=== PATIENT | female | born 2000 | race Caucasian/White ===

== ENCOUNTER 2021-08-27 08:30 | Outpatient (RCR) | payer OTHER, MEDICAID, SELFPAY ==
--- NOTE | 2021-08-27 09:40 | BH.NA ---
Physical Data - Vital Signs Pulse Rate: 79 Blood Pressure: 147/93 - Height/Weight Height: 1.7 m Weight:: 89.358 kg Weight in Pounds: 197.0 lbs Current Medication Compliance - Medication Compliance Do you take your medication as prescribed?: Yes Nutritional History - Appetite Nutritional Instructions:: If client shows signs of a swallowing problem, weight change of 10 pounds or more in the last month, or is on a diabetic diet, the physician will review and request a dietitian consult, as appropriate. All unintentional weight loss will be referred to the physician for decision on need for dietitian consult. Describe your appetite:: Good Functional Assessment - Sleep Pattern Describe any problems with sleeping: Client states she sleeps about 7-8 hours per night, but does state she has been talking with her outpatient psychiatrist about having frequent nightmares. - Activities Motor Activity:: Functional Sensory/Communication Assess - Communication Problems Do you have difficulty understanding what people are saying?: No Medical Problems/History - Pain Assessment Do you have acute or chronic pain?: No - Additional History Additional comments:: bipolar, ADHD, possible borderline personality disorder, depression, anxiety Surgical History - Surgical History Have you had any surgeries? If so, list type and date:: No Substance Abuse - Substance Abuse Please describe substance abuse in the last 30 days:: Client denies alcohol, tobacco or substance use. Client states she drinks about 5-6 pops with caffeine per day. Mental Status Summary - Mental Status Significant Findings/Observations on Appearance and Mood:: Client is alert and oriented x 4. Client is wearing a mask due to the pandemic. Client makes good eye contact. Client's voice has normal rate and volume. Client has appropriate affect and makes logical associations. Client has normal processing. Client denies delusions/hallucinations. Client states she does have some fleeting SI with no plan/intent. Suicide Assessment - Suicidal Ideation Are you currently or have you been suicidal in the past?: Yes - fleeting SI at times, no plan/intent Suicidal Intentional Rating Scale (SIRS): Suicidal thoughts (past) Physician Notification: If Active suicidal thoughts/Will not contract for safety is checked, contact physician and document in the Physician Notification section below. Assault History/Potential Past Psychiatric History - MH Treatment Hx Past Psychiatric Medications:: Prozac, Zoloft, Vraylar Age of first mental health symptoms: Client states she has had symptoms of anxiety and depression since about age 12. Client states she was diagnosed with ADHD as a child. Client states she was diagnosed as bipolar 4-5 years ago and her outpatient psychiatrist and her are talking about the possibility of her having borderline personality disorder. Describe (age, circumstance, etc) any past hospitalizations: Client states she thinks she has been hospitalized 3 times total, one in 2015 for SA by overdose and one in 2020 but she does not remember exactly when third was. Current providers for mental health treatment (counselor, psychiatrist, insurance case manager, etc.): [facility] [id number] for psychiatry and therapy Fall Risk Assessment - Age Age: Less than 60 - Mental Status Mental Status: Willing & able to ask for assistance when needed - Physical Status Physical Status: No problems - Impairments Impairments: None - Elimination Elimination: Continent AND independent - Gait or Balance Gait or Balance: Walks independently - Hx of Falls History of falls in the past 6 months: No known history - Medications/Substances Psychotropics:: Antidepressants, Stimulants Medications/substances used within the past 24 hours or ordered to administer: 1-2 of the medications/substances listed above - Total Score Total Points:: 1 RN Summary of Impressions - Impressions Recommendations: Include psychiatric and medical issues, treatment planning recommendations, and discharge planning needs. Impressions: Psychiatric Issues: 1. Bipolar 1 disorder, most recent episode depression, severe, without psychosis. 2. Generalized anxiety disorder. 3. Cluster B traits, rule out borderline personality disorder. 4. ADHD - Level of Care How do the client's current symptoms and functional deficits support need for this level of care?: Client was referred to IOP by outpatient therapist and psychiatry. Client states she has been having panic attacks frequently and also feels very stressed about work (afraid of doing something wrong). Client states she has 3-4 panic attacks a week and states screaming and self-injury usually follow. Client states she has a long history of self-injury by hitting herself in the head, but states she recently has started to hit herself in the stomach as well. Client states she does have some fleeting SI at times with no plan or intent. Client also endorses anhedonia, isolation and ruminations. IOP will promote gains and prevent further decompensation while providing social support and skills training.
[2021-08-27 10:55] VITALS: BP 147/93; PULSE 79
--- NOTE | 2021-08-27 11:10 | BH.SGPN.GN ---
Behaviors/Verbalizations/Mental Status: []Client alert and oriented, casually dressed and groomed. Eye contact good. Motor activity appropriate. Speech within normal limits. Affect constricted, mood depressed. Thoughts linear, logical, no signs of hallucinations or delusions. Client Response/Progress/Benefit: []Client was an active participant throughout AEB contributing to discussion, providing personal examples, and taking notes. Client did well to relate group topic and activity back to own experiences. Client provided input during discussion on the types of support our supports can provide. Client reports wanting to work on increasing social supports, noting this will help improve trust and help client communicate better. Client plans to improve this support area by talking to her healthy family members, talking with her boyfriend, and signing up for an exercise class. Client seemed to benefit from identifying the type of support and how this support will aid in promoting overall mental wellness. First day of IOP tx. Will continue IOP tx to prevent decompensation, gain healthy coping skills, and improve functioning. Narrative Note: []
--- NOTE | 2021-08-27 12:20 | PCM.BH.PSYEV ---
Psychiatric Evaluation Initial Evaluation Initial Evaluation: History of Present Illness: [] The patient is a 21-year-old single female with a history of bipolar disorder, ADHD and borderline personality disorder who was referred to the [facility] behavioral health IOP program by her psych nurse practitioner for worsening symptoms of depression and anxiety and decreased ability to function. Patient currently lives with her boyfriend in an apartment and they have been together for 6 months. Patient recently had a psychiatric admission at [facility] sometime in the 2020 but she does not remember the month or date. At that time for the of the admission she had depression and suicidal ideation. The patient has what she calls self-harm outburst where she screams and punches her self about 3 times a week. She says sometimes these episodes occur during panic attacks. She feels that the trigger for her worsening symptoms is that she gave her daughter up for adoption around the time of her psychiatric admissions and her daughter is 4 years old. Her daughter was adopted by her half-sister and the patient has not seen her daughter for the last 3 to 4 months. She is uncertain of the rules of visitation for this adoption. Her history of self-harm involves hitting her self but she says it does not need to leave bruises. She has never cut or burned herself. She has decreased her work schedule to part-time in the last 4 weeks due to her mental health issues. 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 She likes her job. For primary support she has her boyfriend. She admits to being somewhat irritable and sad and having crying episodes. She admits to feeling worthlessness but denies hopelessness and denies guilt. She has low motivation and has been isolating. She endorses anhedonia, increased appetite and increased desire to sleep. She is sleeping about 8 hours a night. Her energy level is low but her concentration is okay. She is a worrier by nature and has been ruminating negatively a lot also. She is having panic attacks about once every other day lately. She is obsessed with cleanliness in order but does not meet criteria for OCD. She denies eating disorder, trauma or PTSD. She has no access to guns. She admits to passive fleeting suicidal ideation about 1 week ago but that has resolved. She admits to passive thoughts that she would not care if she but this has not happened since 2 weeks ago. She denies any plan for suicide. She also denies homicidal ideation, hallucinations, delusions or symptoms of adelso. She is not sure when she has been manic she feels that she is mostly depressed and occasionally has episodes where some symptoms of adelso or mixed with depression. Current Psychiatric Medications: [] Latuda 60 mg at dinner with food (x1 month); Lamictal 150 mg p.o. nightly; Focalin 10 mg p.o. twice daily (x3 months); BuSpar 5 mg twice a day (decreased due to side effects recently); hydroxyzine as needed which she is not taking. Past Psychiatric History: [] She has a history of 2 psychiatric admissions in the past. The first was in [address] [facility] in [place]. The second was in the fall 2020 at [facility]. She has a history of 1 suicide attempt in 2014 by overdose. The patient feels there may have been a third psychiatric admission but she says she is not sure. She has a nurse practitioner for psych at [facility] for 08 03 and a counselor there also. She was first depressed at age 12. She first took psychiatric medications very young but is not sure what for. She was diagnosed with ADHD and bipolar disorder at age 20. She first hit her self at age 16. She has been on other meds but does not recall them. Substance Use History: [] Non-smoker. No vaping. No alcohol use. No marijuana use. No other drug use ever. No rehab ever. Allergies: [] No known allergies Medications: [] Psych meds as dictated above plus Depo-Provera IM shot for the past 4 years for control. Past Medical History: [] 1 para 1 Ab0 with a 4-year-old daughter by vaginal delivery and no complications. No surgeries ever. No other medical illnesses. Family Psychiatric History: [] Mother is 50 years old and father is 55 years old. She denies any other mental health history in the fact in the family. No substance use issues in the family. Personal/Social History: [] The patient was born and raised in [facility] and describes her childhood as confusing. Her parents when the patient was less than 1-year-old and the patient lived with her mother and saw her father every other weekend. From age [age] she then lived with her father for 2 years and saw her mother regularly. She was raised with 3/2 siblings. One is 4 years older than her and the others are over 10 years older than her. She is close to one of her half sisters and this is the sister that is adopting her daughter but they are no longer close now. She denies any verbal, physical or sexual abuse. School was good for her and she did okay. She graduated high school and did 2 years of college. She worked very physical jobs since graduating high school but that she changes jobs a lot and is not sure why. The longest job she has ever held has been for 7 months. She identifies as heterosexual and her fear for serious boyfriend is her current one who she has been with for 6 months. No abuse in her relationships. Legal History: [] No arrests. No DUIs. Has fast food delivery driver's license. Review of Systems: [] Negative except as noted in present illness. Vital Signs: [] Reviewed in nurses notes. Mental Status Examination: [] Patient is a 21-year-old female who is seen wearing a mask in a headband. She is normal for stated age and is casually dressed and groomed with good hygiene. She has no psychomotor agitation or retardation. She is cooperative during the interview. Eye contact is good and speech is normal rate and rhythm and fluent with no pressure. Mood is depressed. Affect is constricted. Thought process is goal-directed and organized. Thought content: There is evidence of recent passive suicidal ideation 1 week ago but no current suicidal ideation or thoughts of or plan for suicide. There is no evidence of homicidal ideation, hallucinations, delusions or symptoms of adelso. Reality testing is intact. Intelligence is above average. Judgment is limited. Insight is limited. Impulsivity is high. Diagnoses: [] 1. Bipolar 1 disorder, most recent episode depression, severe, without psychosis 2. Generalized anxiety disorder 3. Cluster B traits, rule out borderline personality disorder 4. ADHD 5. Work and primary support issues Plan: [] The patient will start the IOP program at [facility] as the structure, support, education and group therapy will hopefully prevent worsening of the patient's symptoms which might require hospitalization. She felt safe during the interview and if it anytime she does not feel safe she will let us know or go to the emergency room. The risks, options, possible complications and side effects of the medications were discussed with the patient and she understands and accepts these. No medication changes were made today as the medications were changed by her psychiatric nurse practitioner 2 days ago when she had an appointment with her. The patient states she feels this medication regimen is improving her symptoms and she refuses medication changes now. She will continue to follow-up with her outpatient psychiatric and medical providers and I will see the patient in follow-up as needed and in 2 weeks.
--- NOTE | 2021-08-27 12:32 | BH.DR.ITP ---
Initial Treatment Plan Patient Information Visit Information: ADMISSION DATE: EXPECTED LOS: 4-6 weeks Problems/Symptoms Problem #1:: Depression Symptom:: Sadness, crying, worthlessness, low motivation, isolation, anhedonia, low energy, recent passive, fleeting suicidal ideation, recent passive thoughts of . Problem #2:: Anxiety Symptom:: Worry, rumination, panic attacks
--- NOTE | 2021-08-27 15:09 | BH.COMM_ITS ---
Communication Note - Communication with Client Communication Note: Met with patient to complete initial paperwork for IOP. No significant changes since pre-admission screening. Completed [facility] Scre[facility]. Reports having fleeting passive suicidal ideations within the past month, but denies any intent or plan within the past month. Reports a week ago she had fleeting suicidal ideations and impulsively was going to cut herself, but reports her boyfriend stopped her. History of one previous suicide attempt when pt was a freshman in high school. Pt overdosed on Prozac and spent time in the ICU. Future oriented. Protective factors are her boyfriend, family, and arianne. Reports there is a gun at home, but it is locked up and pt has no access to it. Reports ability to maintain safety. Case discussed with Dr. Cedillo with plan to admit to IOP with dx of bipolar I disorder, most recent episode depression, severe, without psychosis F 31.4
--- NOTE | 2021-08-27 15:09 | BH.MTP ---
Master Treatment Plan - Patient Information Program Physician:: Dr. Terri March Primary Therapist:: Mylene HANSON - Psychiatric Diagnoses Psychiatric Diagnoses:: Bipolar 1 disorder, most recent episode depression, severe, without psychosis; Generalized anxiety disorder; Cluster B traits, rule out borderline personality disorder; ADHD Diagnosis Code(s):: F 31.4 - Estimated LOS Estimated LOS (in weeks):: 6 Problem/Goal #1 - Problem/Goal #1 Stated Goal:: Client will reduce depressive symptoms, anhedonia, and distorted thinking patterns due bipolar disorder, most recent episode depressed. Description of Barriers: Client experiencing significant stressor of giving her daughter up for adoption a year ago. Client reports history of negative thinking patterns and insecurities that impact her relationships and client wants to change these. Client has a history of self-injurious behaviors and a suicide attempt via overdose. Client drives from [place] which could be a barrier in the winter due to weather. Functional Impact: Client is a 22-year-old female with a history of bipolar disorder, ADHD, anxiety, and cluster B traits. Client has a history of two previous psychiatric admissions with the most recent being in 2020 at [facility]. Client was referred to [facility] tx by her outpatient mental health providers due to worsening symptoms which were impacting functioning. Client has been working part-time due to mental health symptoms with limited benefit from traditional outpatient counseling. Client reports outbursts which involve self-injurious behaviors and screaming that occur multiple times a week. Currently endorses increased sleep, increased appetite, low energy, low motivation, anhedonia, isolative behaviors, and worthlessness. Additionally, client reports frequent panic attacks, ruminations, and distorted thoughts that impact her relationships. Client's primary trigger is giving her daughter up for adoption to her sister last year. Client has been experiencing passive thoughts of which occur frequently, but she denies any active suicidal ideations, plan, or intent currently. Client's symptoms are impacting her occupational, social, and home functioning. Goal Relevant Strengths/Supports: Client has an outpatient psychiatric aide and therapist through [facility]. Client reports her boyfriend is supportive and her employer is supportive as well. - Objectives Objective #1 Stated Objective: Client will learn and utilize 2-3 healthy coping strategies to better manage depressive symptoms as shown by reduced DSM-5 scores. Interventions: Through group and individual sessions, therapist will help client identify triggers and warning signs of depression. Therapist will teach client various coping skills to manage her symptoms and give client tangible resources to use to regulate emotions. Therapist will use cognitive restructuring techniques and help client gain awareness of negative thoughts that reinforce depressive cycles and help client reframe these thoughts. Discharge Criteria: Client will have met this goal when she can report learning and using at least 2 coping skills to manage depressive symptoms and show a reduction in DSM-5 symptoms. Target Date: 10/08/21 Review Date: 09/24/21 Status: open Objective #2 Stated Objective: Client will identify at least 2-3 negative self-talk messages used to reinforce guilt, worthlessness, and negative view of self and replace thoughts with balanced, realistic messages. Interventions: Therapist will help client identify distorted, negative beliefs about self and replace with more realistic, affirmative messages. Therapist will use CBT and DBT to help client increase insight to the connection between thoughts, emotions, and behaviors. Therapist will encourage client to practice thought challenging. Discharge Criteria: Client will have achieved this goal when can verbalize at least 2 negative self-talk messages and effectively replace those thoughts with affirmative messages. Target Date: 10/08/21 Review Date: 09/24/21 Status: open Problem/Goal #2 - Problem/Goal #2 Stated Goal:: Client will reduce anxiety symptoms while increasing ability to function on daily basis. Description of Barriers: Client experiencing significant stressor of giving her daughter up for adoption a year ago. Client reports history of negative thinking patterns and insecurities that impact her relationships and client wants to change these. Client has a history of self-injurious behaviors and a suicide attempt via overdose. Client drives from [place] which could be a barrier in the winter due to weather. Functional Impact: Client is a 22-year-old female with a history of bipolar disorder, ADHD, anxiety, and cluster B traits. Client has a history of two previous psychiatric admissions with the most recent being in 2020 at [facility]. Client was referred to [facility] tx by her outpatient mental health providers due to worsening symptoms which were impacting functioning. Client has been working part-time due to mental health symptoms with limited benefit from traditional outpatient counseling. Client reports outbursts which involve self-injurious behaviors and screaming that occur multiple times a week. Currently endorses increased sleep, increased appetite, low energy, low motivation, anhedonia, isolative behaviors, and worthlessness. Additionally, client reports frequent panic attacks, ruminations, and distorted thoughts that impact her relationships. Client's primary trigger is giving her daughter up for adoption to her sister last year. Client has been experiencing passive thoughts of which occur frequently, but she denies any active suicidal ideations, plan, or intent currently. Client's symptoms are impacting her occupational, social, and home functioning. Goal Relevant Strengths/Supports: Client has an outpatient psychiatric aide and therapist through [facility]. Client reports her boyfriend is supportive and her employer is supportive as well. - Objectives Objective #1 Stated Objective: Client will identify 2-3 anxiety triggers and 2 coping skills to use when feeling anxious to manage anxiety as shown by decreasing her DSM-5 scores for anxiety. Interventions: Therapist will provide education on anxiety, avoidance behaviors, and maintenance cycles. Therapist will help client explore personal symptoms and warning signs of anxiety. Therapist will teach client coping skills to improve emotional regulation, mindfulness, and distress tolerance to help client cope with anxiety in the moment. Discharge Criteria: Client will have accomplished this goal when she can identify at least 2 triggers and report using 2 coping skills to manage anxiety. Additionally, client will have accomplished this goal when her DSM-5 scores show a reduction for anxiety. Target Date: 10/08/21 Review Date: 09/24/21 Status: open Objective #2 Stated Objective: Client will identify 2-3 cognitive distortions that lead to rumination and relationship anxiety and learn 2-3 ways to manage these thoughts to better manage anxiety Interventions: Therapist will provide education on the most common cognitive distortions and teach client the connection between thoughts, emotions, and feelings. Therapist will assist client in identifying, challenging, and replacing dysfunctional thoughts with positive, more realistic thoughts. Therapist will use CBT and DBT techniques to help client gain awareness of thinking errors and learn how to more effectively handle negative thoughts. Will encourage client to communicate with her supports to help combat distortions within relationships. Discharge Criteria: Client will have accomplished this goal when can identify at least 2 cognitive distortions and at least 2 coping skills to manage negative thoughts. Target Date: 10/08/21 Review Date: 09/24/21 Status: open
--- NOTE | 2021-08-27 15:09 | BH.PSA ---
Source of Information - Presenting Problems/Circumstances Problems, Referral Source, Mental Status, Client: Client is a 22-year-old female with a history of bipolar disorder, ADHD, anxiety, and cluster B traits. Client has a history of two previous psychiatric admissions with the most recent being in 2020 at [facility]. Client was referred to [facility] by her outpatient mental health providers due to worsening symptoms which were impacting functioning. Client has been working part-time due to mental health symptoms with limited benefit from traditional outpatient counseling. Client reports outbursts which involve self-injurious behaviors and screaming that occur multiple times a week. Currently endorses increased sleep, increased appetite, low energy, low motivation, anhedonia, isolative behaviors, and worthlessness. Additionally, client reports frequent panic attacks, ruminations, and distorted thoughts that impact her relationships. Client's primary trigger is giving her daughter up for adoption to her sister last year. Client has been experiencing passive thoughts of which occur frequently, but she denies any active suicidal ideations, plan, or intent currently. Client's symptoms are impacting her occupational, social, and home functioning. Psychiatric Presentation - Psych Issues & Need for Admission Psychiatric Issues:: Bipolar 1 disorder, most recent episode depression, severe, without psychosis; Generalized anxiety disorder; Cluster B traits, rule out borderline personality disorder; ADHD Past Psychiatric History - Treatment Hx Treatment History: Client has a history of two psychiatric admissions in the past. The first was in 2014 at [facility]. The second was in the fall 2020 at [facility]. Client has a history of one suicide attempt in 2015 by overdose. Client feels there may have been a third psychiatric admission but she says she is not sure. Client has a psychiatric nurse practitioner at [place] [address] and a therapist there also. Client reports she was first depressed at age 12. She first took psychiatric medications very young maybe 8th grade for anxiety and depression. Client was diagnosed with ADHD and bipolar disorder at age 20. First hospitalization:: 2014 at [facility] Most recent hospitalization:: fall 2020 at [facility]. Medication Trials:: Yes ECT Therapy:: No Age of first mental health symptoms: See treatment history Describe (age, circumstance, etc) any past hospitalizations: see treatment history Current providers for mental health treatment (counselor, psychiatrist, director of casework, etc.): Debbie Nieves (director of psychiatry) and Shelli Mendez (therapist) at [place] [address] Development & Family of Origin - Childhood Significant Childhood Events: Client's parents when client was an . Client describes her relationship with her father as strained. Client reports being bullied in school. - Family Who currently lives in your home?: Client lives with her boyfriend and they rent. Describe family composition:: Client was born and raised in [facility] [place] and describes her childhood as confusing. Her parents when client was less than 1-year-old and client lived with her mother and saw her father every other weekend. From age [age] she then lived with her father for 2 years and saw her mother regularly. Client is close with her mother but client does not have a good relationship with her father. Client stated her grandpa and one of her sibling?s fathers were more of a father figure to client. Client was raised with 3/2 siblings. One is 4 years older than her and the others are over 10 years older than her. She was close to one of her half-sisters and this is the sister that is adopting her daughter but they are no longer close now. Client has a four year old daughter and client is no longer with the father of the her baby. Client is currently in a relationship that client describes as healthy. - Family History Family Hx of Psychiatric or AOD Problems: Denies any family history of AoD or mental health issues. Ethnicity - Culture Do you identify yourself with any particular cultural, ethnic background, or community?: No - Sexuality Sexual Orientation: Heterosexual Mental Status - Memory Recent Memory: Fair Remote Memory: Fair - Concentration Concentration: Good - Eye Contact Eye Contact: Good - Speech Speech: Soft - Thought Process Thought Process: Ruminations Insight: Good Judgment: Fair Behavior: Anxious - Orientation Orientation: Time, Person, Place, Situation - Appearance Appearance: Appropriate - Mood Mood: Anxious, Depressed - Affect Affect: Constricted Suicide Assessment - Suicidal Ideation Have you ever felt like hurting yourself?: Yes Please explain:: History of one previous suicide attempt when pt was a freshman in high school. Pt overdosed on Prozac and spent time in the ICU. Were you using ETOH/drugs at the time?: No Suicidal Intentional Rating Scale (SIRS): Suicidal thoughts (past) - There is evidence of recent passive suicidal ideation 1 week ago but no current suicidal ideation or thoughts of or plan for suicide. Physician Notification: If Active suicidal thoughts/Will not contract for safety is checked, contact physician and document in the Physician Notification section below. Violent Behavior/Abuse History - Homicidal Ideation Do you have any homicidal thoughts? If so, explain:: No Is there a known potential victim? If yes, who:: No - Abuse Have you ever been abused?: No Please explain:: Client denies any outright abuse, but during discussion, client reports that there was some potential emotional neglect and odd behaviors by her father when client stayed with him. Client described these behaviors as her father wanting client to sleep in bed with him, but client reports he never touched client inappropriately. - Life Events Are there any other significant life events?: Hardships, Loss of custody of child(gina) Describe significant life events: Client reports belief that the trigger for her worsening symptoms is that she gave her daughter up for adoption around the time of her psychiatric admission. Client shared her family encouraged client to give her daughter up for adoption due to client's mental health symptoms. Client's daughter is 4 years old. Client's daughter was adopted by her half-sister and the patient has not seen her daughter for the last 3 to 4 months. Client has a lot of regret about this and this has caused a strain in the relationship between client and her sister. - Safety Do you ever feel threatened in your home? If yes, describe:: No Adult Social History - Age 17 to Present Describe your current support system:: Client reports her mother and boyfriend are her primary supports. client also states her current employer has been understanding and supportive of her mental health. Substance Use - Substance Substance Use Type: None - Specific Drugs What specific drugs have you used?: Non-smoker. No vaping. No alcohol use. No marijuana use. No other drug use ever. No rehab ever. Education & Occupational Histo - Education What is your level of education?: Some College - She graduated high school and did 2 years of college Do you have any learning disabilities?: No - Occupation List any current or past employment:: Client currently works at [employer] in [place] and likes her job. She worked very physical jobs since graduating high school but that she changes jobs a lot and is not sure why. The longest job she has ever held has been for 7 months. Service - Service Have you ever been in the ?: No Legal History - Records Have you had any past legal charges?: No Do you have any current legal charges?: No Have you ever been incarcerated? If yes, describe:: No - Court Orders Have you had any past court orders for psychiatric treatment?: No Do you have a present court order for psychiatric treatment?: No Problem Checklist - Current Problem Areas Problem List: Nutritional/Eating pattern changes, Depressed mood/sad, Bereavement, Anxiety, Anger/aggression, Inattention, Impulsivity, Mood swings/hyperactivity, Sleep problems, Additional psychosocial stressors Discharge Planning Needs - Anticipated Follow-Up [facility] (Name/Phone Number):: [id number] Private Therapist/Psychiatrist:: Debbie Nieves (director of psychiatry) and Shelli Mendez (therapist) Information Management Specialist's Assessment - Client's Needs What are the client's strengths?: Client has an outpatient director of psychiatry and therapist through [facility]. Client reports her boyfriend is supportive and her employer is supportive as well. Diagnoses - Diagnoses Diagnosis #1:: Bipolar 1 disorder, most recent episode depression, severe, w/o psychosis Diagnosis #2:: Generalized anxiety disorder Diagnosis #3:: Cluster B traits, rule out borderline personality disorder Diagnosis #4:: ADHD Interpretive Summary - Interpretive Summary Interpretive Summary: Client is a 21-year-old single female with a history of bipolar disorder, ADHD and rule out borderline personality disorder who was referred to the [facility] behavioral health IOP program by her psych nurse practitioner for worsening symptoms of depression and anxiety and decreased ability to function. Client currently lives with her boyfriend in an apartment and they have been together for 6 months. Client recently had a psychiatric admission at [facility] sometime in the 2020 but she does not remember the month or date. At that time for the of the admission she had depression and suicidal ideation. Client reports the trigger for her worsening symptoms is that she gave her daughter up for adoption around the time of her psychiatric admission. Client continues to feel grief about this and regret. Client?s daughter is 4 years old. Her daughter was adopted by her half-sister and the client has not seen her daughter for the last 3 to 4 months. She is uncertain of the rules of visitation for this adoption but client plans to talk with her sister about this. Client has history of one other hospitalization and one previous suicide attempt when client was in high school. Client has what she calls self-harm outburst where she screams and punches herself about 3 times a week. She says sometimes these episodes occur during panic attacks. Her history of self-harm involves hitting herself but she says it does not need to leave bruises. Client?s symptoms have been impacting her ability to function at work and client decreased her work schedule to part-time in the last 4 weeks due to her mental health issues. Client works at [employer] in [place] and likes her job. Client reports it has been hard for her to keep jobs in the past. For primary support she has her boyfriend. She admits to being somewhat irritable and sad and having crying episodes. Client reports feeling worthlessness but denies hopelessness and denies guilt. She has low motivation and has been isolating. She endorses anhedonia, increased appetite and increased desire to sleep. She is sleeping about 8 hours a night. Her energy level is low but her concentration is okay. She is a worrier by nature and has been ruminating negatively a lot also. She is having panic attacks about once every other day lately. She is obsessed with cleanliness in order but does not meet criteria for OCD. She denies eating disorder, trauma or PTSD. She has no access to guns. She admits to passive fleeting suicidal ideation about 1 week ago but that has resolved. She admits to passive thoughts that she would not care if she but this has not happened since 2 weeks ago. She denies any plan for suicide. She also denies homicidal ideation, hallucinations, delusions or symptoms of adelso. She is not sure when she has been manic she feels that she is mostly depressed and occasionally has episodes where some symptoms of adelso or mixed with depression. Did not report any family history of bipolar disorder or other mental illness. Denies trauma, but reports her relationship with her father is a contributing factor for her negative thinking and mental health. Denies any substance use. Treatment Plan Recommendations - Recommendations Guidelines: Special needs identified to be included in the development of an individualized treatment plan regarding past psychiatric history and treatment, developmental events, family relationships/events/culture, past and/or current educational, occupational, social, and residential experience, and legal status. Recommendations:: Client will start the IOP program at [facility] as the structure, support, education and group therapy will hopefully prevent worsening of client?s symptoms which might require hospitalization. She felt safe during the interview and if it anytime she does not feel safe she will let us know or go to the emergency room. The risks, options, possible complications and side effects of the medications were discussed between client and IOP psychiatrist and she understands and accepts these. No medication changes were made as client?s outpatient director of psychiatry recently made adjustments. Client will continue seeing her outpatient providers. Client will also continue to be off work while in IOP to give client time to focus on improving symptoms.
--- NOTE | 2021-09-01 09:00 | BH.SGPN.GN ---
Behaviors/Verbalizations/Mental Status: []Eye contact is good. Motor activity is appropriate. Appearance is casual. Speech is appropriate. Mood is euthymic. Affect is congruent. Thoughts are linear and logical. No evidence of psychosis. Reviewed daily symptom tracker sheet with no reports of suicidal ideations, plan, or intent. Client Response/Progress/Benefit: []Client was engaged throughout group session, sharing and listening attentively to others. Client reported her emotion as ?hopeful?. Client stated that she had been stressed about having a conversation with her partner regarding not working while she is in IOP treatment. Stated that the conversation went well, and that she spent time with her partner this weekend. Shared also setting aside time for self care this weekend and did a facemask. Client appeared to benefit from supportive group environment and reflecting on areas of personal progress. Will continue IOP treatment to increase anxiety management skills and increase knowledge and application of varied self care to increase daily functioning. Narrative Note: []
--- NOTE | 2021-09-01 10:00 | BH.SGPN.GN ---
Behaviors/Verbalizations/Mental Status: []Eye contact is fair. Motor activity is appropriate. Appearance is casual and grooming tended to. Speech is Appropriate. Mood is depressed. Affect is constricted. Thoughts are linear and logical. No evidence of psychosis Client Response/Progress/Benefit: []Pt was an engaged participant AEB providing input at times during group discussion and was attentive to others comments. Pt appeared attentive AEB taking notes during psychoeducation about cognitive distortions. Pt benefited from education and increased awareness of cognitive distortions and the role that they play on our behaviors and emotions. Shared with group top three distortions personally uses the most includes: mental filter, jumping to conclusions and labeling. Able to connect impact distortions has on her mental health. Will continue IOP tx to improve emotion regulation, improve daily functioning and prevent decompensation.
--- NOTE | 2021-09-01 11:15 | BH.SGPN.GN ---
Behaviors/Verbalizations/Mental Status: []Client alert and oriented, casually dressed and groomed. Eye contact good. Motor activity appropriate. Speech within normal limits. Affect congruent, mood euthymic. Thoughts linear, logical, no signs of hallucinations or delusions. Client Response/Progress/Benefit: []Pt active throughout session, taking notes and contributing examples. Pt was an actively engaged participant in Cognitive Distortions Jeopardy and utilized notes from psychoeducation on cognitive distortions to assist peers in correctly answering questions. Experiential activity was beneficial as it provided a way for pt to review notes and handouts during psychoeducation to answer questions for the game. Pt reflected on today?s topic and wrote her biggest take away from session was ?knowing not everything is my fault.? Pt was given a thought log to complete for homework. Will continue in IOP tx to prevent decompensation, gain healthy coping skills to help pt return to work, and reduce negative thinking. Narrative Note: []
--- NOTE | 2021-09-01 15:03 | BH.MDN_ITS ---
Multi-Disciplinary Note - Note 30-min Individual Time Started:: 12:05 Date: 09/01/21 Purpose of session/treatment goals addressed:: To gather information on client's current stressors, symptoms, triggers, and tx goals. Another goal was to build rapport and provide emotional support. Eye Contact:: Good Motor Activity:: Appropriate Appearance:: Casual Speech:: Appropriate Mood:: Euthymic Affect:: Congruent Thoughts:: Linear, Logical, No evidence of hallucinations/delusions noted Staff Interventions:: psychoeducation on: - cbt, rapport building, strengths perspective, treatment planning, goal setting Client Response:: Client responded well to session, open to meeting with therapist. Client shared she has been enjoying IOP and hopes the program will help client return to normal functioning. Client discussed the stressors that contributed to her worsening mental health which included giving up her daughter for adoption within the past year. Client stated she wants to work on coping with the emotions surrounding this and to learn how to challenge distortions. Client would also like to improve her emotional regulation skills and communication skills as client reports she either lashes out or shuts down. Client stated she often does this to her boyfriend and wants to learn how to open up more. Client reported it has always been hard for her to talk about her emotions and this was a learned behavior from her family. Client has an outpatient counselor and psychiatry physician. Client reported she has learned coping skills such as PMR and cold therapy but she has not tried these skills yet. Client willing to try these skills for homework and to work on the homework from cognitive distortion group today. Risks/Concerns:: Client denies any suicidal ideations, plan, or intent as of 09/01/21. Future oriented. Denies any HI. Progress Toward Goals/Plan:: Client started IOP tx last week and she reports I really like the program. Client shared she is hoping to take time off of work to focus on her mental health. Client reports her symptoms have been impacting her relationships and ability to function. Endorses a depressed mood, isolative behaviors, increased irritability, and anxiety. Client identified her treatment goals and would like to do a family session with her boyfriend in the future. Will continue IOP tx to prevent decompensation, improve daily functioning, and increase ability to cope with stressors. Time Stopped:: 12:25
--- NOTE | 2021-09-03 09:02 | BH.SGPN.GN ---
Behaviors/Verbalizations/Mental Status: []Client alert and oriented, casually dressed and groomed. Eye contact good. Motor activity appropriate. Speech within normal limits. Affect congruent to topic being discussed, mood dysthymic. Thoughts linear, logical, no signs of hallucinations or delusions. Reviewed client?s symptom tracker, no risk for suicidal ideation, plan, or intent as of 09/03/21 client Response/Progress/Benefit: C[]Client responded well to session, attentive and receptive to feedback. Client reports feeling hopeful this morning. Client shared she and her boyfriend have been going through some rough times and client is hoping that being in IOP tx will help with this. Client received support and advice from peers which client reported was helpful. Client's mental health win today was that she had a talk with her sister about the adoption of client's daughter. Client's sister adopted client's 4-year-old and client stated the conversation helped client understand rights. Client reflected on the courage it took to have this conversation. Appeared to benefit from group support. Will continue IOP tx to prevent decompensation, increase healthy emotional regulation skills, and combat distorted thought patterns. Narrative Note: []
--- NOTE | 2021-09-03 10:10 | BH.SGPN.GN ---
Behaviors/Verbalizations/Mental Status: [] Eye contact is good. Motor activity is appropriate. Appearance is casual. Speech is Appropriate. Mood is depressed. Affect is flat. Thoughts are linear and logical. No evidence of psychosis Client Response/Progress/Benefit: [] Pt did not participate in group discussion. Was not engaged nor did she provide input on topics however did appear attentive AEB by note taking. Attentive during psychoeducation on types of boundaries (physical, emotional, sexual, material, and time), benefits to setting bounsaries, and obstacles to setting healthy boundaries. Benefited from increased awareness of the role of boundaries in mental health. Will continue in IOP to prevent decompensation, increase healthy coping skills, and improve functioning to return to work. Narrative Note: []
--- NOTE | 2021-09-03 11:10 | BH.SGPN.GN ---
Behaviors/Verbalizations/Mental Status: [] Client alert and oriented, casually dressed and appropriately groomed. Eye contact fair. Motor activity WNL. Speech within normal limits. Affect flat, mood anxious and depressed. Thoughts linear and intact. no signs of delusions or hallucinations. Client Response/Progress/Benefit: [] Client mostly passive participant AEB client providing limited contributions, however did appear to listen attentively to others. Client attentive during psychoeducation on the different boundary styles. Client identified she is rigid with boundaries in some areas of her life and porous in other areas of her life. Participated in group discussion brainstorming various strategies for improving healthy personal boundaries. Client identified wanting to work on pausing, taking a breath and don't respond before she has her thoughts formulated. Client recognizes managing emotions in the moment will help improve ability to set healthy boundaries. Will continue IOP tx to increase emotion regulation, challenge distorted thought patterns and prevent decompensation.
--- NOTE | 2021-09-08 09:00 | BH.SGPN.GN ---
Behaviors/Verbalizations/Mental Status: []Client alert and oriented, casually dressed and groomed. Eye contact good. Motor activity appropriate. Speech within normal limits. Affect constricted, mood dysthymic. Thoughts linear, logical, no signs of hallucinations or delusions. Reviewed client?s symptom tracker, no risk for suicidal ideation, plan, or intent as of 09/08/21 Client Response/Progress/Benefit: []Client responded well to session, attentive and receptive to feedback. Client reports feeling tired and sad this morning. Client shared she did not sleep well yesterday and Rao's Day is a trigger because client is used to spending the day with her daughter. Client gave her daughter up for adoption to her sister last year. Client stated she had low motivation today and did not want to come, but she used opposite action. Client received encouragement from peers and shared I know being here makes me feel better. Client also talked through a conflict with her boyfriend which she identified as a win. Appeared to benefit from peer support. Progress noted in use of opposite action today. Will continue IOP tx to prevent decompensation, improve daily functioning, and reduce distorted thought patterns. Narrative Note: []
--- NOTE | 2021-09-08 11:07 | BH.SGPN.GN ---
Behaviors/Verbalizations/Mental Status: []Client alert and oriented, casually dressed and groomed. Eye contact fair to good. Motor activity appropriate. Speech within normal limits, quiet. Affect constricted, mood anxious and depressed. Thoughts linear, logical, no signs of hallucinations or delusions Client Response/Progress/Benefit: []Client responded well to session AEB listening to group discussion and completing the resilience worksheet provided. Client participated in the discussion of how each resiliency component can help increase personal resiliency. Worked cooperatively with group to identify strategies to enhance each of the components discussed. Client identifying doing well with the resilience components of: self-awareness and taking care of yourself. Went on to reflect wanting to improve in the personal resilience component of ?move towards your goals?. Client stated she wants to work on this by breaking tasks and goals into smaller steps. Client seemed to benefit from discussing strategies for improving personal resilience. Will continue IOP tx to prevent decompensation, continue to promote application of healthy coping skills, and further improve mood stability. Narrative Note: []
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
--- NOTE | 2021-09-10 09:00 | BH.SGPN.GN ---
Behaviors/Verbalizations/Mental Status: []Client alert and oriented, casually dressed and groomed. Eye contact fair to good. Motor activity appropriate. Speech within normal limits. Affect congruent, mood depressed. Thoughts linear, logical, no signs of hallucinations or delusions. Reviewed client?s symptom tracker, no risk for suicidal ideation, plan, or intent as of 09/10/21 Client Response/Progress/Benefit: []Client responded well to session, willing to share and receptive of support from peers. Client reports feeling unhappy this morning and attributes this to having several arguments with her boyfriend the past several days. Shared this has impacted her overall mood and desire to do things as well. Shared not wanting to get out of the house which has created additional conflict. Client receptive of supportive feedback and shared finding the group setting to be helpful in allowing her to feel less alone. Client identified that despite this stressor, she is still making plans for self-care this week and is scheduled to get her hair done. Additionally, shared reaching out to supports, doing puzzles, and watching movies has aided in improving her mood at times throughout the week as well. Client progress limited as she continues to struggle with significant depressive symptoms and negative thinking patterns. Will continue IOP tx to prevent decompensation, continue to improve depression management skills, and further encourage regular self-care . Narrative Note: []
--- NOTE | 2021-09-10 10:10 | BH.SGPN.GN ---
Behaviors/Verbalizations/Mental Status: []Client alert and oriented, casually dressed and groomed. Eye contact good. Motor activity appropriate. Speech within normal limits. Affect constricted, mood anxious. Thoughts linear, logical, no signs of hallucinations or delusions. Client Response/Progress/Benefit: []Client responded well to session AEB sharing and listening attentively to others. Client listened attentively and took notes throughout group discussion defining and identifying barriers to taking action. Clinician discussed how certain emotional states can color our perspective, describing it as ?what is driving your bus?. Client provided shyness, lack of communication, and anger as driving her ?bus? most often. Appeared to benefit from increased self-awareness and knowledge regarding examples and barriers to taking action. Will continue IOP treatment to continue increasing client?s self-esteem and decrease negative self-talk to increase overall functioning. Narrative Note: []
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
--- NOTE | 2021-09-15 09:00 | BH.SGPN.GN ---
Behaviors/Verbalizations/Mental Status: [] Eye contact is good. Motor activity is appropriate. Appearance is disheveled. Speech is Appropriate. Mood is depressed. Affect is flat. Thoughts are linear and logical. No evidence of psychosis. Reviewed daily check in sheet and no reports of suicidal ideations or intent. Client Response/Progress/Benefit: [] Pt participated at times during the group discussion. Attentive. Emotion for today is hopeful. Daily symptom tracker notes 5 for depression and 5 for anxiety. Pt shared with the group that she was struggling with depression last week and into the weekend. Her mental health win was that she was able to identify some coping skills that were effective for her depression and outbursts. Insight also that poor communication and bottling up emotions/thoughts led to conflict with BF. Was able to be vulnerable and communicate honestly with support and has noticed significant improvement. Open up to group that negative thoughts about giving up her daughter to adoption is often the trigger to decompensation and outbursts. States today that she woke up happy. In good spirits today. Progress noted per pt report. Benefited from group support, encouragement, and feedback. Will continue with IOP to prevent decompensation, stabilize mood, improve functioning to return to work. Narrative Note: []
--- NOTE | 2021-09-15 10:05 | BH.SGPN.GN ---
Behaviors/Verbalizations/Mental Status: []Client alert and oriented, casually dressed and groomed. Eye contact good. Motor activity appropriate. Speech within normal limits. Affect constricted, mood anxious. Thoughts linear, logical, no signs of hallucinations or delusions. Client Response/Progress/Benefit: []Client responded well to session AEB listening attentively to others. Client was attentive and engaged throughout group discussion regarding the definition and impacts of anxiety, its benefits, and when it becomes abnormal. Clinician provided psychoeducation on anxiety diagnoses and the anxiety triangle of physical symptoms, safety behaviors, and common anxious thoughts. Client identified physical symptoms of anxiety as including headaches, nail biting, and shakiness. Connected with discussion reviewing anxiety safety behaviors and reported personal safety behaviors as creating conflict, overplanning, and stress eating, and common anxious thoughts as ?they hate me? and ?I?m not doing enough?. Client appeared to benefit from increased knowledge of anxiety diagnoses and causes, as well as improved self awareness of anxiety symptoms. Will continue IOP treatment to decrease negative self-talk and increase healthy coping skills to improve daily functioning. Narrative Note: []
--- NOTE | 2021-09-15 11:10 | BH.SGPN.GN ---
Behaviors/Verbalizations/Mental Status: []Client alert and oriented, casually dressed and groomed. Eye contact good. Motor activity appropriate. Speech within normal limits. Affect constricted, mood anxious and depressed. Thoughts linear, logical, no signs of hallucinations or delusions. Client Response/Progress/Benefit: []Client an attentive participant AEB listening and taking notes throughout discussion. Reviewed safety behaviors she engages in that reinforce anxiety though declined to share with group. Attentive during psychoeducation on mindfulness coping skills and their impact on mental health wellness. The group worked together to brainstorm anxiety reduction strategies. Client reported she will practice gardening, writing, guided meditation, and yoga as ways to help manage anxious symptoms. Client seemed to benefit from increased repertoire of anxiety reduction skills. Client will continue IOP tx to continue to encourage mood stability, improve healthy communication with supports, as well as prevent decompensation. Narrative Note: []
--- NOTE | 2021-09-15 14:34 | BH.MDN ---
Multi-Disciplinary Note - Note 45-min Individual Time Started:: 12:00 Date: 09/15/21 Purpose of session/treatment goals addressed:: To review and process the mistaken beliefs questionnaire, process current stressors, and discuss homework in the BPD workbook. Eye Contact:: Good Motor Activity:: Appropriate Appearance:: Casual Speech:: Appropriate Mood:: Euthymic Affect:: Congruent Thoughts:: Linear, Logical, No evidence of hallucinations/delusions noted Staff Interventions:: thought challenging, psychoeducation on:, strengths perspective, other - gave homework from the BPD workbook. Client Response:: Pt responded well to session, open to meeting with therapist. Pt shared she has been doing better than last session. Pt stated she and her boyfriend continue to fight, but pt shared they have been communicating better after arguments. Pt reports her boyfriend would like advice on how to help pt. Pt provided with resources to help herself and show her boyfriend. Pt also shared insight that she will create conflict with her boyfriend because I feel not enough so I want to make him feel worse than me. Pt able to see how this is a short-term benefit with long-term consequences that reinforce her low self-worth. Pt completed the mistaken beliefs questionnaire and gained insight to the deep-rooted negative beliefs pt has. Pt connected most with the mistaken beliefs that her worth was dependent on being loved by others, others' acceptance and approval, and being perfect. Discussed the life experiences that reinforce these believes. Pt reports that many of her mistaken beliefs stem from her relationship with her father. Pt also shared that she has negative beliefs about herself because of pt giving up her daughter for adoption. Processed pt's emotions about her daughter, her relationship with her sister, and worries about the future of this situation. Also looked at solutions to help pt cope with situation and reduce anxiety in the mooment. Pt receptive to completing a chapter from the BPD workbook. Risks/Concerns:: Pt denies any suicidal ideations, plan, or intent as of 09/15/21. Pt reports her mood is better this week. Progress Toward Goals/Plan:: Pt is progressing towards tx goals AEB her consistent attendance, engagement in groups, and follow through with homework. Pt self-reported on the daily symptom tracker that her mood and functioning have generally been better and pt is taking her medication consistently. Pt plans to return to work part-time on 09/30/21. Pt is working on improving her emotional regulation and communication skills, reducing negative thought patterns, and increasing ability to functioning. Pt continues to experience mood instability, interpersonal conflict, low self-esteem, and ruminations. Pt will continue IOP tx to improve work-related functioning, improve emotional regulation skills, and reduce negative thought patterns that reinforce low self-worth. Time Stopped:: 12:48
--- NOTE | 2021-09-17 09:04 | BH.SGPN.GN ---
Behaviors/Verbalizations/Mental Status: []Eye contact is good. Motor activity is appropriate. Appearance is casual. Speech is Appropriate. Mood is euthymic. Affect is congruent. Thoughts are linear and logical. No evidence of psychosis. Reviewed daily check in sheet and no reports of suicidal ideations or intent. Client Response/Progress/Benefit: []Pt responded well to session AEB pt sharing thoughts and feelings, listening attentively to others and providing feedback to others. Pt stated feeling more positive and happy this morning as she had a positive night with supports the previous date. Discussed challenging herself to seek support from her sister regarding emotions related to her daughter?s adoption. Shared this as a positive experience and that she was glad she reached out. Went on to indicate purchasing several items for her sister who is and using her boyfriend as a support during this potentially triggering experience. Shared plans to take time to address current stressor of several raccoons being in the house by reaching out to her landlord, additional plans to read afterwards. Progress noted in pt self-report of improved mood and skill application. Pt to continue IOP to continue use of healthy coping skills, improve mood stability, and prevent decompensation. Narrative Note: []
--- NOTE | 2021-09-17 10:06 | BH.SGPN.GN ---
Behaviors/Verbalizations/Mental Status: []Client alert and oriented, casually dressed and groomed. Eye contact good. Motor activity appropriate. Speech within normal limits. Affect congruent, mood euthymic. Thoughts linear, logical, no signs of hallucinations or delusions. Client Response/Progress/Benefit: []Client responded well to session AEB listening attentively to others and taking notes. Client was engaged throughout group discussion of the impacts and consequences of unmanaged anger, as well as the benefits of anger. Client reported outward personal signs of anger as yelling, crying, and cussing. Identified underlying emotions that contribute to anger including jealousy and guilt. Appeared to benefit from increased knowledge of anger as a secondary emotion and increased self-awareness of signs and emotions that contribute to anger. Will continue IOP treatment to continue increasing healthy coping skills to improve daily functioning. Narrative Note: []
--- NOTE | 2021-09-22 09:03 | BH.SGPN.GN ---
Behaviors/Verbalizations/Mental Status: [] Client alert and oriented, casually dressed and groomed. Eye contact good. Motor activity appropriate. Speech within normal limits. Affect congruent, mood anxious and euthymic. Thoughts linear, logical, no signs of hallucinations or delusions. Reviewed client?s symptom tracker denies any suicidal ideation, plan, or intent as of 09/16/21. Client Response/Progress/Benefit: [] Client responded well to session, attentive and willing to process with group. Client reports feeling happy? this morning as she had several positive experiences over the weekend. Discussed several wins including challenging negative thoughts when faced with a disappointment, helping her mom clean out the basement, as well as using opposite action to encourage herself to go out to dinner with her boyfriend for their anniversary. Expressed feeling proud of herself for utilizing several skills and glad that she has been continuing to take steps to step outside her comfort zone. Appeared to benefit from group support and reflecting on areas of progress. Client will continue IOP tx to promote healthy communication with supports, continue to encourage skill application, and maintain mood stability. Narrative Note: []
--- NOTE | 2021-09-22 10:15 | BH.SGPN.GN ---
Behaviors/Verbalizations/Mental Status: []Client alert and oriented, casually dressed and groomed. Eye contact good. Motor activity appropriate. Speech within normal limits. Affect congruent, mood anxious. Thoughts linear, logical, no signs of hallucinations or delusions. Client Response/Progress/Benefit: []Client responded well to session AEB taking notes throughout and listening attentively to others. Client was attentive throughout group activity identifying famous individuals and how they overcame failure to be successful. Client nodded and took notes as group defined fear of failure and its impact on their mental health and relationships. Client participated in experiential activity, working with group members to problem solve. Appeared to benefit from increased knowledge of fear of failure. Will continue IOP treatment to continue increasing mood stability and decrease negative self talk to improve overall functioning. Narrative Note: []
--- NOTE | 2021-09-22 11:15 | BH.SGPN.GN ---
Behaviors/Verbalizations/Mental Status: []Client alert and oriented, casually dressed and groomed. Eye contact good. Motor activity appropriate. Speech within normal limits. Affect congruent, mood euthymic. Thoughts linear, logical, no signs of hallucinations or delusions. Client Response/Progress/Benefit: []Client responded well to session, engaged in the experiential activity and attentive throughout group processing. Client completed fear of failure worksheet and was able to identify thoughts and behaviors that reinforce personal fear of failure including: toxic people, fear of embarrassment, self-doubt, and all or nothing thinking. Client also reported that fear of failure has kept client from having good relationships, setting boundaries, experiencing ceci, and job success. Client participated in small group discussion regarding strategies to overcome fear of failure. Identified wanting to work on challenging fear of failing by practicing self-compassion. Appeared to benefit from increased knowledge of strategies to combat fear of failure and gaining self-awareness. Client will continue IOP treatment to improve work-related functioning, reduce negative thinking patterns, and improve mood stability. Narrative Note: []
== END 2021-09-22 23:59 | disposition home or self-care (01) ==
LOC: BHIOP 08:30
PROVIDERS: Visit Provider Psychiatry & Neurology Psychiatry
DX: F31.4 Bipolar disorder, current episode depressed, severe, without psychotic features (principal); F60.3 Borderline personality disorder; F41.8 Other specified anxiety disorders; Z79.899 Other long term (current) drug therapy
CPT/HCPCS: S9480; 90832; 90834; 90853

== ENCOUNTER 2021-09-23 07:41 | Outpatient (RCR) | payer OTHER, MEDICAID, SELFPAY ==
[2021-09-23 00:39] VITALS: BP 147/93; PULSE 79
--- NOTE | 2021-09-24 09:00 | BH.SGPN.GN ---
Behaviors/Verbalizations/Mental Status: []Eye contact is good. Motor activity is appropriate. Appearance is casual. Speech is Appropriate. Mood is euthymic. Affect is congruent. Thoughts are linear and logical. No evidence of psychosis. Reviewed daily check in sheet and no SI indicated. Client Response/Progress/Benefit: []Pt responded well to session, attentive and receptive to support. Pt reports feeling hopeful this morning as pt got her dog back from her mother's house. Pt shared yesterday there was a stressor with her dog, but pt felt like she managed her anxiety well in the moment and did not allow her emotions to consume her. Pt is getting ready to return to work with restrictions and pt stated she is anxious, but also excited. Pt's stressor today is that she is thinking about talking to her father about her mental health and her father has not always been understanding. Group offered advice for talking with loved ones about mental health which pt appeared to benefit from. Progress noted in pt's report of managing her anxiety yesterday, but pt continues to struggle with consistent use of coping skills. Pt will continue IOP tx to promote mood stability, increase emotional regulation skills, and improve work-related functioning. Narrative Note: []
--- NOTE | 2021-09-24 11:13 | BH.SGPN.GN ---
Behaviors/Verbalizations/Mental Status: [] Client alert and oriented, casually dressed and groomed. Eye contact fair. Motor activity appropriate. Speech within normal limits. Affect constricted, mood dysthymic and anxious. Thoughts linear, logical, no signs of hallucinations or delusions. Client Response/Progress/Benefit: [] Client passive participant AEB only providing input when elicited by therapist. Client did appear attentive to others and took notes. Attentive during psychoeducation about characteristics of healthy, unhealthy, and abusive relationships. Able to identify relationship strengths. Client reported wants to work on improving ability to trust other more often. Client stated she will use strategies that she came up with from individual therapy today. Client able to connect how her mistrust negatively impacts her relationships. Appeared to benefit from reflecting upon personal relationship strengths, as well as brainstorming strategies to build healthier relationships. Pt recommended to continue IOP tx to improve emotion regulation, challenge distorted thoughts and prevent decompensation.
--- NOTE | 2021-09-24 11:30 | BH.MDN ---
Multi-Disciplinary Note - Note 60-min Individual Time Started:: 10:20 Date: 09/24/21 Purpose of session/treatment goals addressed:: To work on goal #2 of pt's tx plan. Another goal was to discuss return to work and review healthy coping skills. Eye Contact:: Good Motor Activity:: Appropriate Appearance:: Casual Speech:: Appropriate Mood:: Euthymic, Anxious Affect:: Congruent Thoughts:: Linear, Logical, No evidence of hallucinations/delusions noted Staff Interventions:: thought challenging, CBT techniques, mindfulness skills, strengths perspective, reviewed DSM-5, taught coping skills, other - chain analysis and discussion of BDP workbook homework Client Response:: Pt responded well to session, open to meeting with therapist. Pt completed homework from last session from the BPD workbook. Pt reported the chapter was challenging at times, but she learned more about her patterns of behavior and distorted thoughts of self. Pt able to see that she often views herself as not good enough in relationships which leads to pt using unhealthy skills. Pt reports she often seeks reassurance, will accuse her boyfriend of cheating, lash out, will tell her boyfriend she wants to break up, or frequently call or text him. Recognizes that some of this is due to being cheated on in previous relationships and that pt has struggled with low self-worth for many years. Pt identified triggers that lead to these patterns of thinking and behaving including: boyfriend working late, boyfriend being less physically intimate, and boyfriend not doing the little things. Completed a chain analysis so pt can see how these thoughts, emotions, and behaviors create a chain reaction. Pt looked at where she can stop this chain and what skills pt can use. Discussed deep breathing, art, writing out and challenging anxious thoughts, and identifying three personal attributes she has. Encouraged to practice thought challenging for homework. Risks/Concerns:: Pt denies any suicidal ideations, plan, or intent as of 09/24/21. Pt denies any HI. Denies any thoughts of . Progress Toward Goals/Plan:: Pt continues to respond well to tx AEB her consistent attendance and completion of homework. Pt is quiet during group sessions, but she takes notes and reports connecting with topics. Per pt's DSM-5 scores, pt's depression has decreased by 60% since admission, thoughts of hurting herself have decreased by 50%, and anxiety has decreased by 81%. Pt continues to struggle with interpersonal relationship issues, low self-worth, and distorted thinking patterns. Pt plans to return to work part-time next week which pt reports she is ready for as of today. Pt to continue IOP tx to promote mood stability, combat distortions, and improve overall functioning. Time Stopped:: 11:17
--- NOTE | 2021-09-24 11:34 | BH.MTP_ITS ---
Treatment Plan Review Date of Admission:: 08/27/21 Date of Treatment Plan Review:: 09/24/21 Admitting Diagnoses:: Bipolar 1 disorder, most recent episode depression, severe, without psychosis F 31.4; Generalized anxiety disorder; Cluster B traits, rule out borderline personality disorder; ADHD Current Diagnoses:: Bipolar 1 disorder, most recent episode depression, severe, without psychosis F 31.4; Generalized anxiety disorder; Cluster B traits, rule out borderline personality disorder; ADHD Patient's Response to Treatment:: Pt has responded well to treatment AEB pt mostly consistently attending IOP sessions and her reduction of DSM-5 scores by 55% since admission. Pt contributes well during individual sessions and is consistent with homework. Pt is quiet during group sessions, but she takes notes and reports benefitting from the coping skills and information. Pt reports she applies coping skills outside of IOP and that she has gained more awareness of her negative thinking patterns and unhelpful behaviors. Status of Current Problems and Symptoms: Per pt's self-report, her problems are ongoing, but her symptoms are resolving. Pt continues to struggle with interpersonal relationship issues, low self-worth, and distorted thinking patterns. Pt is connecting with the borderline personality disorder diagnosis and she is working on identifying her unhelpful behaviors and negative core beliefs. Pt is to return to work part-time next week which pt reports feeling ready for, but also anxious. Problem #1 Problem Name:: depressive symptoms, anhedonia, and distorted thinking patterns Status of Goals:: Objective 1-complete with ongoing work encouraged. Pt?s DSM-5 scores for anxiety have decreased by 81% since admission. Pt reports utilizing deep breathing, opposite action, and talking with supports. Pt reports feeling less anxious about returning to work and looking forward to making money again. Objective 2-in progress. Pt does well with identifying distortions and can challenge these during session, but pt struggles to do this on her own. Team Recommendations:: Treatment team encourages pt to continue working on this treatment goal to further combat distortions that reinforce unhealthy coping skills and negative core beliefs. Pt also recommended to continue working on improving communication with her boyfriend. Problem #2 Problem Name:: anxiety, ruminations, panic Status of Goals:: Objective 1- complete with ongoing work encouraged. Pt?s DSM-5 scores for depression have decreased by 60% since admission and thoughts of actually hurting herself have decreased by 50% since admission as well. Pt can identify healthy coping skills such as opposite action, painting, and playing video games. Objective 2- in progress. Pt has gained awareness to her distorted thought patterns and negative core beliefs. Pt is learning how these thoughts impact her relationships and is working on creating healthier core beliefs of self. Team Recommendations:: Treatment team recommends pt increase verbal contributions during group sessions to combat anxiety and increase self- confidence. Also recommend pt increase application of calming skills to promote work-related functioning.
--- NOTE | 2021-10-01 09:03 | BH.SGPN.GN ---
Behaviors/Verbalizations/Mental Status: []Eye contact is good. Motor activity is appropriate. Appearance is casual. Speech is appropriate. Mood is down. Affect is congruent. Thoughts are linear and logical. No evidence of psychosis. Reviewed daily symptom tracker sheet with no reports of suicidal ideations, plan, or intent. Client Response/Progress/Benefit: []Client was engaged throughout group session sharing and listening attentively to others. Client reported her emotion as ?sad, but happy?. Client stated that over the weekend she had multiple anger outbursts toward her boyfriend due to thoughts of him cheating. Reported that she is also struggling as she is unable to visit her daughter for the next few months due to her sister?s high risk . Appeared to benefit from group discussion empathizing with client?s feelings and providing supportive feedback. Client discussed that yesterday was her first day back to work. Client stated that she had a panic attack in the bathroom, but was able to talk to her supports and challenge her negative thoughts to get through it. Reported that her client hr manager was very supportive and helped her when she had questions. Progress noted AEB client report of first day back to work going well. Will continue IOP treatment to continue increasing mood stability and application of anxiety management skills to improve daily functioning. Narrative Note: []
--- NOTE | 2021-10-01 11:13 | PCM.BH.PN_ITS ---
Progress Note Progress Note: History of Present Illness/Interim History: [] The patient is a 21-year-old female with a history of bipolar disorder and borderline personality disorder who is seen in follow-up at the [facility] behavioral health IOP program. I last saw the patient 3 weeks ago and at that time she was restarting her Latuda that she had discontinued. The patiently recently saw her outpatient psychiatrist who increased Latuda from 30 mg to 40 mg p.o. daily at dinner with food. The patient is tolerating the Latuda well and has had no side effects on it now although she had some nausea when she first restarted it. The patient feels she is really benefiting from the program and learning valuable skills to help her deal with her mental health issues. She plans to return to work this week and she actually went to work yesterday and was able to do well at work. She states her mood is pretty normal now without depression. She has occasional irritability. She has had only 1 panic attack in the past 2 weeks which occurred the morning before she went to work but resolved and she was able to function well at work. She denies any passive thoughts of , plan for suicide or suicidal ideation. She does admit to thoughts of self-harm over the weekend and she did hit her self in the head twice with her hand over the weekend with no significant injury. She denies homicidal ideation, hallucinations, delusions or symptoms of adelso. Current psych medications: Latuda 40 mg p.o. at dinner with food (restarted with 2 to 3 weeks ago); Lamictal 150 mg p.o. nightly; Focalin 10 mg p.o. twice a day; BuSpar 5 mg twice a day Current Psychiatric Medications: []see above Mental Status Examination: [] Patient is a 21-year-old female who is seen wearing a mask due to the pandemic and is casually dressed and groomed with good hygiene. She is cooperative during the interview and has no psychomotor agitation or retardation. Eye contact is good and speech is normal rate and rhythm and fluent with no pressure. Mood is euthymic. Affect is full and normal. Thought process is goal-directed and organized. Thought content: There is no evidence of thoughts of , suicidal ideation, plan for suicide, homicidal ideation, hallucinations, delusions. Reality testing is intact. There has been thoughts of self-harm and she did hit herself in the head 1 time several days ago. Judgment is limited but improving. Insight is limited. Impulsivity is high. Diagnoses: [] 1. Bipolar 1 disorder, most recent episode depression, mild 2. Borderline personality disorder 3. Generalized anxiety disorder 4. Rule out ADHD 5. Work and primary support issues Plan: [] The patient will continue the IOP program at [facility] as the structure, support, education and group therapy will hopefully prevent worsening of the patient's symptoms which might require hospitalization. If the patient continues to improve which she may discharge soon. Patient felt safe during the interview and if it anytime she does not feel safe she will let us know or go to the emergency room. The risk, options, possible complications and side effects of the medications and the importance of compliance with medications were discussed with the patient again and she understands and accepts this. No medication changes were made today. She will continue to follow-up with her outpatient provider.
--- NOTE | 2021-10-01 14:06 | BH.MDN ---
Multi-Disciplinary Note - Note 45-min Individual Time Started:: 11:25 Date: 10/01/21 Purpose of session/treatment goals addressed:: The purpose of this session was to address current stressors, review homework, and begin working on pt's maintenance plan. Eye Contact:: Good Motor Activity:: Appropriate Appearance:: Casual Speech:: Appropriate Mood:: Euthymic, Anxious Affect:: Congruent Thoughts:: Linear, Logical, No evidence of hallucinations/delusions noted Staff Interventions:: thought challenging, CBT techniques, mindfulness skills, strengths perspective, other - Completed a maintenance plan and gave homework for pt to complete a self-care plan. Client Response:: Pt responded well to session, open to meeting with therapist. Pt reports doing well today and shared she is proud of herself for getting through the workday yesterday. Pt stated she had a panic attack at work, but pt did not leave work and she utilized skills. Pt shared in the past she would have just left her shift and kept her struggles to herself. Pt reached out to her supervisor assembly and her mother. Pt recognized that her anxiety about returning to work presented in increased irritability over the weekend. Pt shared she and her boyfriend got into a fight which resulted in pt self-harming and accusing her boyfriend of cheating. Discussed what pt can do to cope in the future such as pausing and looking at the facts, breathing, and communicating with her boyfriend that she needs breaks. Pt willing to work on a maintenance plan the will help pt identify triggers, warning signs, and coping skills for anxiety and jealousy. Pt completed this with therapist in session. Pt gained awareness to behaviors that make these emotions worse such as going through her boyfriend's phone and avoiding work. Pt receptive to homework on completing a self-care plan that included daily, weekly, and monthly self-care. Risks/Concerns:: Pt denies any suicidal ideations, plan, or intent as of 10/01/21. Pt admits to self-harm via hitting herself over the weekend and pt punched a wall. Pt did not break anything and there are no cuts visible. No self-harm urges today. Progress Toward Goals/Plan:: Pt continues to respond well to tx AEB her completion of homework and self-report of getting through the workday yesterday despite having a panic attack. Pt did cancel group twice recently and admitted to self-harming over the weekend. Pt shared she has been able to bounce back from these setbacks with more ease than in the past and has been utilizing skills more. Pt reports her biggest issue right now is jealous, low self-worth, and improving her trust within relationships. Pt?s depression and anxiety are resolving. Pt no longer has suicidal ideations and prior to recent self-harm, pt had not engaged in self-harm for several weeks. Pt to continue IOP tx to promote gains, further improve work-related functioning, and improve distress tolerance skills. Time Stopped:: 12:15
--- NOTE | 2021-10-03 09:06 | BH.SGPN.GN ---
Behaviors/Verbalizations/Mental Status: []Eye contact is good. Motor activity is appropriate. Appearance is casual. Speech is Appropriate. Mood is euthymic and anxious. Affect is congruent. Thoughts are linear and logical. No evidence of psychosis. Reviewed daily check in sheet and no reports of suicidal ideations or intent. Client Response/Progress/Benefit: []Pt receptive of session and engaged throughout. Reports current emotion as ?hopeful? despite having a ?hard day yesterday?. Shared that she called off work after getting into an argument with her boyfriend and ended up sleeping and isolating for much of the day. Acknowledged this as self-sabotage and noted this only reinforced her negative thoughts. Shared she was able to address the issue with her boyfriend later in the day which helped her to then engage in healthier self-care behaviors rather than continue to isolate. Reports plans to continue working with her individual therapist on addressing feelings of jealousy to improve her ability to better regulate her own emotions. Pt appeared to benefit from supportive feedback provided by group. Will continue in [facility] tx to improve healthy boundary setting, stabilize mood, and improve functioning. Narrative Note: []
--- NOTE | 2021-10-03 10:15 | BH.SGPN.GN ---
Behaviors/Verbalizations/Mental Status: []Client alert and oriented, casually dressed and groomed. Eye contact good. Motor activity appropriate. Speech within normal limits. Affect congruent, mood euthymic. Thoughts linear, logical, no signs of hallucinations or delusions. Client Response/Progress/Benefit: []Client responded well to session AEB listening attentively to others. Client participated in activity illustrating how positive and negative perspectives affect how individuals view situations, listening attentively as others shared their observations and insights. Client nodded and took notes throughout group defining and discussing perspective and what impacts it. Client identified that having a positive perspective ?motivates me to keep going?, and helps her focus on her goal of improving her mental health. Appeared to benefit from increased knowledge and self-awareness of perspective. Will continue IOP treatment to increase mood stability and application of healthy coping skills to improve daily functioning. Narrative Note: []
--- NOTE | 2021-10-03 11:15 | BH.SGPN.GN ---
Behaviors/Verbalizations/Mental Status: []Client alert and oriented, neatly dressed and groomed. Eye contact good. Motor activity appropriate. Speech within normal limits. Affect constricted, mood hopeful. Thoughts linear, logical, no signs of hallucinations or delusions Client Response/Progress/Benefit: []Pt did well to remain attentive throughout session, AEB providing input throughout discussion. Engaged as group reviewed the importance of taking a strengths-based approach to foster a healthier perspective and better manage mental health symptoms. Completed strengths exploration worksheet and identified personal strengths to include: creativity, artistic ability, and love of learning. Pt reported these strengths are currently helping pt get emotional release and gain healthy coping skills. Pt stated self-sabotage and allowing her emotions to control her keep pt from using strengths and pt helped group identify strategies to increase acknowledgement of strengths. Benefited from identifying personal strengths and strategies for enhancing use of identified strengths. Pt to continue IOP tx to improve emotional regulation skills, increase interpersonal effectiveness skills, and combat distortions. Narrative Note: []
--- NOTE | 2021-10-08 10:10 | BH.SGPN.GN ---
Behaviors/Verbalizations/Mental Status: []Client alert and oriented, casual appearance. Eye contact good. Motor activity appropriate. Speech within normal limits. Affect constricted, mood anxious. Thoughts linear, logical, no signs of hallucinations or delusions. Client Response/Progress/Benefit: []Pt was an active participant in group discussion and experiential activity. Attentive during psychoeducation. Group had an interactive discussion on the benefits of emotional regulation in which pt provided insight. Group identified several benefits to emotional regulation which included; more stable relationships, improved communication, and better ability to manage stress. Group also was able to identify how emotions can impact our communication leading to; difficulty articulating our thoughts, shutting down, mind-reading, and getting defensive. Pt participated in experiential activity and reported she purposely tried a role outside of her comfort zone so pt can practice coping with anxiety. Benefited from increased awareness into how emotions can impact one's ability to effectively communicate. Will continue IOP tx to increase emotional regulation skills, reduce distorted thought patterns, and improve daily functioning. Narrative Note: []
--- NOTE | 2021-10-08 11:20 | BH.SGPN.GN ---
Behaviors/Verbalizations/Mental Status: []Client alert and oriented, casually dressed and groomed. Eye contact fair. Motor activity appropriate. Speech within normal limits. Affect constricted, mood anxious. Thoughts linear, logical, no signs of hallucinations or delusions. Client Response/Progress/Benefit: []Client engaged in session AEB client listening attentively to peers and providing input. Attentive during psychoeducation on 4 zones of regulation. Client able to identify feelings and behaviors for each zone. Client identified coping skills one can use to support self in each zone which included: go to another room, journaling, affirmations, talking to someone, and five senses. Client reports she can benefit from practicing journaling, identifying wins, and five senses. Benefited from increased education on zones of regulation or stages of alertness for emotions and healthy coping skills to use for each zone. Will continue IOP tx to prevent decompensation, reduce negative thinking, and consistent application of skills.
--- NOTE | 2021-10-08 15:04 | BH.MDN_ITS ---
Multi-Disciplinary Note - Note 45-min Individual Time Started:: 09:10 Date: 10/08/21 Purpose of session/treatment goals addressed:: To address current stressors and triggers, barriers keeping pt stuck, and plan to return to work. Eye Contact:: Good Motor Activity:: Appropriate Appearance:: Disheveled Speech:: Appropriate Mood:: Anxious, Dysthymic Affect:: Congruent - tearful at the beginning of session. Thoughts:: Linear, Logical, No evidence of hallucinations/delusions noted Staff Interventions:: thought challenging, motivational interviewing, mindfulness skills, discharge planning, strengths perspective, other - Gave resources for pt to use including a visual reminder of emotional regulation skills and a mood tracker. Also talked about return to work. Client Response:: Pt responded well to session, open to meeting with therapist. Pt entered session tearful and shared I think I'm getting worse. Therapist allowed pt to vent and then processed emotions. Pt receptive to gentle thought challenging and able to see that she is not getting worse, but today is a difficult moment. Pt shared she lashed out at her boyfriend, hit herself and punched a wall, and felt more depressed over the weekend. Pt struggled to init ially identify triggers, but then realized she had multiple triggers this weekend with her family. Pt shared her father was asking pt about her daughter and the adoption. Pt also had conflict with her mother about her daughter. Pt continues to struggle with acceptance, grief, and emotional processing regarding her daughter's adoption. Discussed self-advocacy and boundary strategies as well as what pt can do in the future to cope with triggers. Pt shared she did take her dog for a walk yesterday to calm down and pt talked with her boyfriend about having a family session. Pt has a self-care plan and a maintenance plan and was encouraged to utilize these resources when she is home. Pt shared that because of these triggers pt did not go to work yesterday, but pt reports that work is not a cause for increased symptoms. Pt states she is however wanting to explore other employment and applied for a few other jobs. Pt feels she may do better at something that is part-time and requires less computer time. Pt felt better by the end of session, smiling and laughing. Risks/Concerns:: Pt denies any suicidal ideations, plan, or intent as of 10/08/21. Pt reports medication compliance. Pt admits to self-harming yesterday by hitting self and punching a wall, but denies bruising. Progress Toward Goals/Plan:: Pt reports regression in symptoms today which appeared to be triggered by stressors with her mother, father, and adoption. Pt stated she hit herself yesterday, did not go to work, and lashed out at her boyfriend. Pt also reports she has been having nightmares. Pt was to return to work next week without restrictions, but due to decompensation, pt will continue for one more week of IOP with work restrictions. Pt continues to self-report difficulty utilizing internal coping skills and pt understands this could be a barrier to progress. Pt has shown progress with bouncing back after setbacks and utilizing self-reflection to help pt learn what she can do in the future. Pt has also gained insight to her distorted thinking patterns and how this impacts her behaviors. Pt will continue IOP tx for an additional week to help pt overcome r ecent stressors and further improve overall functioning. Time Stopped:: 09:50
--- NOTE | 2021-10-10 09:00 | BH.SGPN.GN ---
Behaviors/Verbalizations/Mental Status: []Eye contact is fair. Motor activity is appropriate. Appearance is casual. Speech is Appropriate. Mood is euthymic. Affect is congruent. Thoughts are linear and logical. No evidence of psychosis. Reviewed daily check in sheet and no reports of suicidal ideations or intent. Client Response/Progress/Benefit: []Pt responded well to session AEB sharing thoughts and feelings and listening attentively to peers. Pt stated she had a rough weekend because was triggered by her dad asking questions about her daughter and then hearing her daughter talking on the phone with her mom. Pt reported she responded to the stress by taking it out on her boyfriend. Pt stated she often will lash out on the people that she is closest to when she is struggling. Pt stated mental health positive as spending time outside yesterday weeding the garden as a way to get out her frustrations. Additional mental health positive as having a open, honest conversation with her boyfriend yesterday in which they identified boundaries for each other. Pt stated they posted the boundaries up so can keep each other accountable. seemed to benefit from support from peers. Pt to continue IOP to increase emotion regulation, challenge distorted thoughts and prevent decompensation.
--- NOTE | 2021-10-10 10:14 | BH.SGPN.GN ---
Behaviors/Verbalizations/Mental Status: []Client alert and oriented, neatly dressed and groomed. Eye contact good. Motor activity appropriate. Speech within normal limits. Affect congruent, mood euthymic. Thoughts linear, logical, no signs of hallucinations or delusions. Client Response/Progress/Benefit: []Pt was an active participant in group discussion and activity. Attentive during psychoeducation. Pt participated in group discussion in which group defined fixed mindset and provided insight on how a fixed mindset could impact mental health. Pt?s fixed mindset thoughts included: I?m not going to get better,? ?I?m probably going to fail at something new? and ?I?m tired of going through this.? Pt stated fixed thinking results in pt canceling plans and lashing out at supports. Benefited from increased awareness on the role of fixed mindset on mental health. Will continue in IOP to promote mood stability, improve emotional regulation skills, and improve daily functioning. Narrative Note: []
--- NOTE | 2021-10-10 11:14 | BH.SGPN.GN ---
Behaviors/Verbalizations/Mental Status: []Client alert and oriented, casually dressed and groomed. Eye contact good. Motor activity appropriate. Speech within normal limits. Affect congruent. mood euthymic. Thoughts linear, logical, no signs of hallucinations or delusions. Client Response/Progress/Benefit: []Client engaged during activity and discussion AEB providing some input, connecting with peers, as well as taking notes throughout. Client did well to engage as group worked on identifying characteristics and benefits of adopting a growth mindset. Worked with fellow participants in reframing the example fixed thoughts into growth mindset thoughts, providing support throughout. Client worked in small group to apply skills learned to reframe own personal fixed thoughts. Reframed personal fixed thought of ?I?m not going to get any better? with growth mindset thought of ?It will take time, hard work, and using the skills I have learned, but in time it?ll get better?. Noted that this would aid in reducing negative self-talk and improve patience with herself. Benefitted from discussing benefits of growth mindset and brainstorming strategies for prompting growth-mindset. Will continue IOP tx to continue to promote active skill application, maintain mood stability, as well as continue to improve healthy coping repertoire. Narrative Note: []
--- NOTE | 2021-10-15 11:10 | BH.SGPN.GN ---
Behaviors/Verbalizations/Mental Status: []Client alert and oriented, casually dressed and groomed. Eye contact good. Motor activity appropriate. Speech within normal limits. Affect congruent, mood euthymic. Thoughts linear, logical, no signs of hallucinations or delusions. Client Response/Progress/Benefit: []Client engaged participant AEB client taking notes and providing input during discussion. Attentive throughout group discussion on the various areas of self-care, benefits, and types of self-care activities for each area. Client completed worksheet which identified current self-care practices and what self-care activities client wants to start using. Client selected spiritual self-care as the area of self-care client would like to improve. Client plans to do this by reading her bible and devotional on a weekly basis. Client reports she is doing well with social and psychological self-care. Appeared to benefit from completing the self-care evaluation and gaining insights into current self-care practices, as well as identifying areas in which she would like to improve upon. Will continue IOP for one more day to reinforce healthy coping skills and establish aftercare. Narrative Note: []
--- NOTE | 2021-10-15 14:57 | BH.MDN ---
Multi-Disciplinary Note - Note 30-min Individual Time Started:: 09:15 Date: 10/15/21 Purpose of session/treatment goals addressed:: To address current stressors and discuss strategies to help cope with these stressors. Another goal was to discuss discharge and aftercare. Eye Contact:: Good Motor Activity:: Appropriate Appearance:: Casual Speech:: Appropriate Mood:: Euthymic Affect:: Congruent Thoughts:: Linear, Logical, No evidence of hallucinations/delusions noted Staff Interventions:: discharge planning, strengths perspective, reviewed DSM-5, other - discussed progress and coping skills pt can continue to utilize Client Response:: Pt responded well to session, open to meeting with therapist. Pt reflected on progress since starting IOP tx and saw reduction of scores. Pt identified progress in gaining awareness of negative thought patterns that reinforce jealousy, depression, anxiety, and insecurity, more communication with her boyfriend, boundary setting, and getting back into exercising. Pt continues to deal with family stressors with her daughter's adoption and the conflict this had brought between pt and her sister. Discussed pt going to a support group for mothers and pt felt she would benefit from this. Pt was again encouraged to talk with her sister and potentially ask a cattle care worker for guidance on what pt's rights are per the adoption agreement. Pt reviewed healthy coping skills she would like to continue using such as positive self-care, gardening, art, video games, mindfulness, and thought challenging. Pt will be participating in [facility] aftercare. Risks/Concerns:: Pt denies any thoughts of or suicidal ideations, plan, or intent. Progress Toward Goals/Plan:: Pt will discharge from [facility] level of care on 10/17/21. Pt has accomplished tx goals AEB overall symptom reduction of 72% and increased functioning. Pt reports she resigned from her previous job and recently got hired for a part-time position which pt feels more confident about. Pt also reports overall mood stability and increased physical activity. Pt plans to follow up with her outpatient therapist and psychology department chair at [place] [id number] as well as continue with [facility] aftercare. Time Stopped:: 09:37
--- NOTE | 2021-10-17 08:43 | BH.AFTERPLAN ---
Aftercare Plan - Demographics Treatment End Date:: 10/17/21 Psychiatrist:: Terri March Psychiatrist Office #:: [phone] [facility] Therapist:: Mylene Tony Therapist Phone #:: [phone] - Plan Details Progress/Aftercare Plan Details:: Radha has made significant strides since starting IOP as shown by her reduced symptoms, ability to challenge distortions, and improved ability to cope with life stressors. When Radha started IOP, she was anxious and depressed. Radha struggled to communicate with supports, had a lot of negative thought patterns, and was experiencing many life stressors. Now, Radha is actively using healthy coping skills like opposite action, challenging negative thoughts, and using the awareness she has gained to manage her emotions. Radha self-reports progress in challenging negative and anxious thoughts, setting boundaries and communicating with her boyfriend, doing more ?anxious stuff,? working out, and not self-harming. Radha was attentive during group and offered emotional support to peers. In individual sessions, Radha was receptive to feedback, consistent with homework, and willing to push herself. Radha?s overall DSM-5 scores decreased by 72% from admission. Depression decreased by 100%, anxiety by 82%, anger by 67% and SI by 100%. Radha will follow up with [id number] for individual counseling and psychiatry. Strategies for Success:: 1. Continue to use positive self-talk when you feel anxiety, guilt, or doubting. 2. Remember thoughts are thoughts NOT facts! Just because we think/feel a certain way doesn?t mean it?s true. 3. Give yourself time to decide before responding and reacting? breathe and think of solutions or alternative options. 4. Opposite action! Continue to push yourself to do what will help you, not always what your emotions wants you to do. 5. Tap into your creativity! [place], draw, etc. 6. Stay active! Remember you don?t have to exercise all the time, but keep up with your current routine. 7. Challenge your negative thoughts and be proactive with reaching out rather than bottling emotions. 8. Maintenance! Self-care is important and so is checking in with yourself each day. Keep gardening and taking care of you 9. Remember to pay attention to what doesn?t work, avoid unnecessary triggers and unhealthy coping skills as much as you can. 10. Keep communicating with healthy supports. - Appointments Appointments/Referrals to Other Services:: 1. Individual therapy with Shelli 10/20/21. 2. Follow up with Debbie Nieves either next week or in October for medication management. 3. IOP aftercare starting 10/23/21. 4. Check your email for resources (sent by me) for mother support groups. - Medications Home Medications: Home Medications buspirone [BuSpar] 5 mg PO BID 08/27/21 dexmethylphenidate [Focalin] 10 mg PO BID 08/27/21 hydroxyzine HCl 10 mg PO BID PRN PRN 08/27/21 lamotrigine [Lamictal] 150 mg PO DAILY 08/27/21 lurasidone [Latuda] 40 mg PO DAILY 10/01/21
--- NOTE | 2021-10-17 09:05 | BH.SGPN.GN ---
Behaviors/Verbalizations/Mental Status: [] Eye contact is good. Motor activity is appropriate. Appearance is casual. Speech is normal. Mood is euthymic. Affect is full. Thoughts are linear and logical. No evidence of psychosis. Reviewed daily check in sheet and no reports of suicidal ideations or intent. Client Response/Progress/Benefit: [] Pt was an active participant in group discussion. Attentive. Provided appropriate feedback. Emotion for today is Happy. Mental health win was utilizing skills last night despite verbal conflict with support. I stayed calm and was able to process and communicate effectively with support. Proud of herself for not reacting impulsively or avoidance. Utilizing skills to manage stressors and emotional triggers. I'm generally happier since starting IOP. She shared recent life changes which she believes will also benefit her mental health. Shared that today is her last day in IOP. Identifed skills learned and group that resonated the most with her. Progress noted per pt report. Benefited from group support, encouragement, and feedback. Will be discharged from IOP today. Narrative Note: []
--- NOTE | 2021-10-17 10:15 | BH.SGPN.GN ---
Behaviors/Verbalizations/Mental Status: []Client alert and oriented, casually dressed and groomed. Eye contact good. Motor activity appropriate. Speech within normal limits. Affect congruent, mood euthymic. Thoughts linear, logical, no signs of hallucinations or delusions. Client Response/Progress/Benefit: []Pt was an active participant in group discussion and activity. Attentive during psychoeducation on coping skills and gave examples of unhealthy coping skills shut as trying to cope all alone, lashing out, and self-harm. Pt able to reflect on how her ability to cope with stressors has improved and pt is using more healthy skills. Benefited from increased understanding of unhealthy coping skills and the need for developing healthy interna and external coping skills. Pt will discharge from IOP tx as pt has accomplished their tx goals and no longer meets criteria for IOP level of care. Narrative Note: []
--- NOTE | 2021-10-17 11:15 | BH.SGPN.GN ---
Behaviors/Verbalizations/Mental Status: []Client alert and oriented, casually dressed and groomed. Eye contact fair to good. Motor activity appropriate. Speech within normal limits. Affect congruent, mood anxious and euthymic. Thoughts linear, logical, no signs of hallucinations or delusions. Client Response/Progress/Benefit: [] Client responded well to session, taking notes and providing input and examples throughout. Group discussed the different categories of coping skills which included distraction, emotional release, grounding, self-love, and thought challenging. Client created a coping skill menu identifying various skills she could try in each category. Client?s coping skill menu included: word searches, 5-senses, art, regularly taking her medication, and asking herself ?how realistic is this thought??. Appeared to benefit from increasing repertoire of healthy coping skills. Will discharge from tx given progress and is recommended to continue outpatient tx to maintain gains, further promote mood stability, and prevent decompensation. Narrative Note: []
--- NOTE | 2021-10-17 13:51 | BH.DS ---
Discharge Summary - Demographics Date of Admission:: 08/27/21 Discharge Date: 10/17/21 Presenting Problems at Admission:: Client is a 22-year-old female with a history of bipolar disorder, ADHD, anxiety, and cluster B traits. Client has a history of two previous psychiatric admissions with the most recent being in 2020 at [facility]. Client was referred to [facility] tx by her outpatient mental health providers due to worsening symptoms which were impacting functioning. Client has been working part-time due to mental health symptoms with limited benefit from traditional outpatient counseling. Client reports outbursts which involve self-injurious behaviors and screaming that occur multiple times a week. Currently endorses increased sleep, increased appetite, low energy, low motivation, anhedonia, isolative behaviors, and worthlessness. Additionally, client reports frequent panic attacks, ruminations, and distorted thoughts that impact her relationships. Client's primary trigger is giving her daughter up for adoption to her sister last year. Client has been experiencing passive thoughts of which occur frequently, but she denies any active suicidal ideations, plan, or intent currently. Client's symptoms are impacting her occupational, social, and home functioning. Discharge Diagnoses:: Bipolar 1 disorder, most recent episode depression, severe, without psychosis; Generalized anxiety disorder; Cluster B traits, rule out borderline personality disorder; ADHD Reason for Discharge:: Pt has accomplished her tx goals AEB her overall symptom reduction and self-report of improved mood. Pt no longer meets criteria for IOP level of care and will continue with outpatient counseling. - Treatment Progress During Treatment & Response: Pt has made significant strides since starting IOP as shown by her reduced symptoms, ability to challenge distortions, and improved ability to cope with life stressors. When Pt started IOP, she was anxious and depressed. Pt struggled to communicate with supports, had a lot of negative thought patterns, and was experiencing many life stressors. Now, Pt is actively using healthy coping skills like opposite action, challenging negative thoughts, and using the awareness she has gained to manage her emotions. Pt self-reports progress in challenging negative and anxious thoughts, setting boundaries and communicating with her boyfriend, doing more ?anxious stuff,? working out, and not self-harming. Pt missed a few days of IOP, but was overall consistent. Pt was attentive during group and offered emotional support to peers. In individual sessions, Pt was receptive to feedback, consistent with homework, and willing to push herself. Pt?s overall DSM-5 scores decreased by 72% from admission. Depression decreased by 100%, anxiety by 82%, anger by 67% and SI by 100%. Issues Still to be Addressed:: Pt can benefit from ongoing counseling to further catch, combat, and replace distorted thoughts of self that reinforce anxiety, depression, and relationship issues. Pt can also benefit from attending a support group for mothers and continuing to talk with her family about her rights as a mother. Pt is also working on gaining self-confidence, using grounding skills, and improving her work-related functioning. Discharge Recommendations/Instructions:: Pt will continue with individual therapy and medication management at [place] [id number] with Shelli 10/20/21 for counseling and Debbie Nieves in October. Pt last saw Debbie Nieves on 09/25/21. Pt will also be participating in [facility] aftercare which starts on 10/23/21 for pt. Discharge Handout: Complete Discharge Handout with client on aftercare options and continuity of care.
== END 2021-10-17 12:29 | disposition home or self-care (01) ==
LOC: BHIOP 07:41
PROVIDERS: Visit Provider Psychiatry & Neurology Psychiatry
DX: F31.31 Bipolar disorder, current episode depressed, mild (principal); F60.3 Borderline personality disorder; F41.8 Other specified anxiety disorders; Z79.899 Other long term (current) drug therapy
CPT/HCPCS: S9480; 90832; 90834; 90837; 90853

== ENCOUNTER 2021-10-23 08:30 | Outpatient (RCR) | payer OTHER, SELFPAY ==
--- NOTE | 2021-10-23 14:00 | BH.SGPN.GN ---
Behaviors/Verbalizations/Mental Status: []Client alert and oriented, casually dressed and groomed. Eye contact good. Motor activity appropriate. Speech within normal limits. Affect congruent, mood euthymic. Thoughts linear, logical, no signs of hallucinations or delusions. Client Response/Progress/Benefit: []Client responded well to session AEB sharing and listening attentively to others. Client reported using self-compassion and thought challenging as coping skills this week. Client has appointments scheduled with her outpatient individual therapist and psychiatrist, and reports taking her medications regularly. This is client's first week of aftercare treatment. Client nodded and took notes throughout group discussion of healthy decision making, including what goes into making a healthy decision and what keeps us from making them. Client participated in experiential small group activity and processing. Client appeared to benefit from psychoeducation but left prior to creating a personal goal for improving healthy decision making. Will continue aftercare treatment to reinforce healthy coping skills and promote gains. Narrative Note: []
--- NOTE | 2021-10-23 14:16 | BH.MTP ---
[facility] - Patient Information Program Physician:: Dr. Terri March Primary Therapist:: Mylene HANSON - Psychiatric Diagnoses Psychiatric Diagnoses:: Bipolar 1 disorder, most recent episode depression, severe, without psychosis F ; Generalized anxiety disorder; Cluster B traits, rule out borderline personality disorder; ADHD Diagnosis Code(s):: F - Estimated LOS Estimated LOS (in weeks):: 10 Problem/Goal #1 - Problem/Goal #1 Stated Goal:: Client will maintain or see a reduction in symptoms AEB client score on the DSM 5 cross-cutting measure and improve client's daily functioning. - Objectives Objective #1 Stated Objective: Client will continue to consistently apply healthy coping skills to maintain progress made in IOP tx Interventions: Through group therapy, client will review warning signs and triggers as well as healthy coping skills learned in IOP tx to successfully maintain gains while transitioning into outpatient therapy. Discharge Criteria: Client will have accomplished this goal when client's score on the DSM-5 cross-cutting measure has either maintained or reduced over a 10 week period. Target Date: 01/01/22 Review Date: 11/20/21 Status: open Objective #2 Stated Objective: Client will learn and utilize 2-3 maintenance strategies to prevent decompensation. Interventions: Through group therapy, client will be provided with education on healthy maintenance behaviors, relapse prevention techniques, and healthy coping strategies. Discharge Criteria: Client will have accomplished this goal when can report using at least 2 maintenance skills to prevent decompensation. Target Date: 01/01/22 Review Date: 11/20/21 Status: open
--- NOTE | 2021-10-23 15:10 | BH.DS ---
Discharge Summary - Demographics Date of Admission:: 10/23/21 Discharge Date: 10/23/21 Presenting Problems at Admission:: Pt discharged from IOP tx and transitioned to IOP aftercare to maintain gains Pt made in [facility] and to reinforce healthy coping skills. At admission to [facility] aftercare, pt continued to struggle with emotional dysregulation at times as well as low self-esteem and negative thought patterns. Pt was also experiencing stressors with changing jobs, finances, and interpersonal relationship stress with her family and partner at times. Discharge Diagnoses:: Bipolar 1 disorder, most recent episode depression, severe, without psychosis F31.81; Generalized anxiety disorder; Cluster B traits, rule out borderline personality disorder; ADHD Reason for Discharge:: Pt would like to voluntarily discharge from [facility] aftercare as pt reported she did not want this additional service. Pt will continue with her outpatient counseling and medication management. - Treatment Progress During Treatment & Response: No progress to document as pt did not complete IOP aftercare. Issues Still to be Addressed:: See [facility] discharge summary for issues still to be addressed. Discharge Recommendations/Instructions:: Pt will follow up with her outpatient providers at [place] [id number] for medication management and individual counseling. Pt has also been given resources for support groups for mothers. Discharge Handout: Complete Discharge Handout with client on aftercare options and continuity of care.
== END 2021-10-23 23:59 | disposition home or self-care (01) ==
LOC: BHOG 08:30
PROVIDERS: Referring Provider Psychiatry & Neurology Psychiatry; Visit Provider Psychiatry & Neurology Psychiatry
DX: F31.4 Bipolar disorder, current episode depressed, severe, without psychotic features (principal); F41.8 Other specified anxiety disorders; F90.9 Attention-deficit hyperactivity disorder, unspecified type
CPT/HCPCS: 90853